=== PATIENT | male | born 1990 | race Hispanic/Latino ===

== ENCOUNTER 2018-03-01 04:02 | Emergency (ER) | payer BC ==
[2018-03-01 04:31] LABS: APPEARANCE,URINE Clear (CLEAR); BILIRUBIN,URINE Negative (NEGATIVE); COLOR,URINE Yellow (YELLOW); GLUCOSE, URINE (UA) Negative (NEGATIVE); KETONES,URINE Negative (NEGATIVE); LEUKOCYTE ESTERASE ,URINE Negative (NEGATIVE); NITRATE,URINE Negative (NEGATIVE); OCCULT BLOOD,URINE Negative (NEGATIVE); PH,URINE 5.5 (5.0-8.0); PROTEIN,URINE Negative (NEGATIVE); UROBILINOGEN,URINE 0.2 mg/dL (0.2-1.0)
[2018-03-01] MEDS ORDERED: TRAMADOL HCL 50 MG TABLET ONE (05:04)
[2018-03-01] MEDS ORDERED: CEFTRIAXONE SODIUM 500 MG VIAL ONE (07:21)
[2018-03-01] MEDS ORDERED: LIDOCAINE HCL-MPF 1% 2ML VIAL ONE (07:22)
== END 2018-03-01 07:54 | disposition home or self-care (01) ==
LOC: EDH 04:02
DX: N45.1 Epididymitis (principal); F32.9 Major depressive disorder, single episode, unspecified
CPT/HCPCS: 76870; 81003; 87486; 87797; 96372; 99284; J0696; J3490